=== PATIENT | female | born 1990 | race Caucasian/White ===

== ENCOUNTER 2021-11-25 07:16 | Inpatient (IN) | payer OTHER ==
[2021-11-25 08:30] LABS: HCT 37.2 % (37.0-47.0); HGB 12.1 g/dl (12.5-16.0); MCH 30.1 pg (25.0-31.0); MCHC 32.5 g/dL (32.0-36.0); MCV 92.5 fL (78.0-100.0); MPV 12.2 fL (6.0-9.5); RBC 4.02 M/uL (4.20-5.40); RDW 13.8 % (11.5-14.0); WBC 8.4 K/uL (4.0-10.5)
[2021-11-25 10:08] LABS: BILIRUBIN NEGATIVE (NEGATIVE); BLOOD TRACE-INTACT Ery/uL (NEGATIVE); CLARITY CLEAR (CLEAR); COLOR YELLOW (YELLOW); GLUCOSE (U) NORMAL (NORMAL); LEUKOCYTES NEGATIVE Leu/uL (NEGATIVE); NITRITE NEGATIVE (NEGATIVE); PROTEIN NEGATIVE (NEGATIVE); SPECIFIC GRAVITY <=1.005 (1.001-1.030); UROBILINOGEN 0.2 mg/dL (0.2-1.0); pH 6.5 (5.0-9.0)
[2021-11-25 10:18] LABS: BACTERIA TRACE
[2021-11-26 06:32] LABS: HCT 32.7 % (37.0-47.0); HGB 10.6 g/dl (12.5-16.0); MCH 30.5 pg (25.0-31.0); MCHC 32.4 g/dL (32.0-36.0); MCV 94.2 fL (78.0-100.0); MPV 12.9 fL (6.0-9.5); RBC 3.47 M/uL (4.20-5.40); WBC 10.9 K/uL (4.0-10.5)
== END 2021-11-27 11:00 | disposition home or self-care (01) | DRG 787 ==
LOC: FOB 07:16 → UNDOADMIN 07:16 → FOB 15:59
PROVIDERS: ADMIT Obstetrics & Gynecology
PROC: 10D00Z1 Extraction of Products of Conception, Low, Open Approach (ICD-10-PCS; principal; 2021-11-25 09:00)
DX: O36.63X0 Maternal care for excessive fetal growth, third trimester, not applicable or unspecified (principal); D62 Acute posthemorrhagic anemia; O99.12 Other diseases of the blood and blood-forming organs and certain disorders involving the immune mechanism complicating childbirth; Z37.0 Single live birth; Z3A.40 40 weeks gestation of pregnancy; Z20.822 Contact with and (suspected) exposure to COVID-19; O48.0 Post-term pregnancy; O99.02 Anemia complicating childbirth; O34.211 Maternal care for low transverse scar from previous cesarean delivery; O13.4 Gestational [pregnancy-induced] hypertension without significant proteinuria, complicating childbirth; D69.6 Thrombocytopenia, unspecified; O69.81X0 Labor and delivery complicated by cord around neck, without compression, not applicable or unspecified; Z79.82 Long term (current) use of aspirin; Z79.899 Other long term (current) drug therapy
CPT/HCPCS: 36415; 81001; 86850; 86900; 86901; J0690; J1885; J2274; J2370; J2405; J3010; J7120; U0002